=== PATIENT | female | born 1990 | race African-American/Black ===

== ENCOUNTER 2017-02-23 15:48 | Emergency (ER) | payer MEDICAID ==
[~2017-02-23] VITALS: Ht 152.4 cm; Wt 60.8 kg
[~2017-02-23 15:48] MED LIST: FLUO10CA28 PO; ONDA4TAB12 PO; ZIPR40CA2 PO
[2017-02-23] MEDS ORDERED: HYDR-3965 PO (16:38)
[2017-02-23] MEDS ORDERED: ONDA4TAB9 PO (16:38)
[2017-02-23] MEDS ORDERED: ondansetron 4mg rapidly disintigrating tab PO ONE (16:40)
[2017-02-23] MEDS ORDERED: HYDROcodone/acetaminophen 5mg/325mg tablet PO ONE (16:40)
[2017-02-23 17:04] VITALS: BP 120/71
== END 2017-02-23 17:09 | disposition home or self-care (01) ==
LOC: ER 15:49
DX: S20.212A Contusion of left front wall of thorax, initial encounter (principal); G89.29 Other chronic pain; Z88.1 Allergy status to other antibiotic agents; W10.9XXA Fall (on) (from) unspecified stairs and steps, initial encounter; Y93.89 Activity, other specified; Y92.89 Other specified places as the place of occurrence of the external cause; Y99.9 Unspecified external cause status
CPT/HCPCS: 71046; 99284